=== PATIENT | male | born 1940 | race Caucasian/White ===

== ENCOUNTER 2022-08-04 18:59 | Emergency (ER) | payer MEDICARE ==
[~2022-08-04] VITALS: Ht 167.6 cm; Wt 77.3 kg
[2022-08-04 19:28] LABS: BASOPHILS % (AUTO) 0.6 % (0-1); EOSINOPHILS # (AUTO) 0.3 X10'3 (0-0.9); EOSINOPHILS % (AUTO) 4.3 % (0-6); HEMATOCRIT 36.2 % (42.0-52.0); HEMOGLOBIN 11.7 g/dl (14.0-17.9); LYMPHOCYTES # (AUTO) 0.9 X10'3 (1.1-4.8); LYMPHOCYTES % (AUTO) 14.9 % (21-51); MEAN CORPUSCULAR HEMOGLOBIN 26.6 PG (27.0-31.0); MEAN CORPUSCULAR HGB CONC 32.5 g/dL (33.0-36.5); MEAN PLATELET VOLUME 7.5 FL (7.4-10.4); MONOCYTES # (AUTO) 0.5 X10'3 (0-0.9); MONOCYTES % (AUTO) 8.1 % (2-12); NEUTROPHILS # (AUTO) 4.6 X10'3 (1.8-7.7); NEUTROPHILS % (AUTO) 72.1 % (42-75); PLATELET COUNT 311 X10'3 (140-440); RED BLOOD COUNT 4.41 X10'6 (4.70-6.10); RED CELL DISTRIBUTION WIDTH 15.3 % (11.5-14.5); WHITE BLOOD COUNT 6.4 X10'3 (4.5-11.0)
[2022-08-04 19:31] LABS: ALANINE AMINOTRANSFERASE 17 U/L (12-78); ALBUMIN 3.1 G/DL (3.4-5.0); ALBUMIN/GLOBULIN RATIO 0.6 (1.1-1.5); ALKALINE PHOSPHATASE 105 IU/L (46-116); ANION GAP 7 (8-16); ASPARTATE AMINO TRANSFERASE 22 U/L (10-37); BILIRUBIN,TOTAL 0.2 MG/DL (0.1-1.0); BLOOD UREA NITROGEN 19 MG/DL (7-18); BUN/CREATININE RATIO 17.3 (10.0-20.0); CALCIUM 8.9 MG/DL (8.5-10.1); CHLORIDE 101 MMOL/L (99-107); GLUCOSE 163 MG/DL (70-104); POTASSIUM 4.5 MMOL/L (3.5-5.1); SODIUM 138 MMOL/L (135-145); TOTAL CARBON DIOXIDE 30.2 MMOL/L (24-32); TOTAL PROTEIN 8.1 G/DL (6.4-8.2); eGFR 64 ML/MIN
[2022-08-04 19:38] LABS: MAGNESIUM 2.2 MG/DL (1.5-2.4)
[2022-08-04 20:31] LABS: LIPASE 187 U/L (73-393)
[2022-08-04] MEDS ORDERED: LIDOcaine Viscous 15ml cup MM ONE (22:15)
[2022-08-04] MEDS ORDERED: pantoprazole 40mg Tablet.DR PO ONE (22:15)
[2022-08-04] MEDS ORDERED: mag hydrox/Alum hydrox/simeth 30ml oral suspension PO ONE (22:15)
[2022-08-04 22:46] VITALS: BP 166/74
[2022-08-04] MEDS ORDERED: amox tr/potassium clavulanate 875/125mg TAB PO ONE (23:50)
[2022-08-04] MEDS ORDERED: AMOX-117 PO (23:53)
== END 2022-08-05 00:14 | disposition home or self-care (01) ==
LOC: ER 19:00
DX: J18.1 Lobar pneumonia, unspecified organism (principal); J90 Pleural effusion, not elsewhere classified; R13.10 Dysphagia, unspecified
CPT/HCPCS: 36415; 71045; 71250; 74176; 76700; 80053; 83690; 83735; 83880; 84484; 85025; 93005; 99285

== ENCOUNTER 2024-01-09 15:27 | Outpatient (CLI) | payer MEDICARE ==
[~2024-01-09 15:27] MED LIST: barium sulfate 340gm for oral suspension 1 BOTTLE SUSP.RECON PO ONE
== END 2024-01-09 23:59 | disposition home or self-care (01) ==
LOC: RAD 15:27
PROVIDERS: ATTEND Surgery
DX: K31.89 Other diseases of stomach and duodenum (principal); K44.9 Diaphragmatic hernia without obstruction or gangrene; K21.9 Gastro-esophageal reflux disease without esophagitis
CPT/HCPCS: 74220